=== PATIENT | male | born 1985 | race Caucasian/White ===

== ENCOUNTER 2020-06-21 07:14 | Emergency (ER) | payer OTHER ==
[~2020-06-21 07:14] MED LIST: ZOFRAN ODT 4 MG4 MG SL
[2020-06-21 08:01] LABS: HEMOGLOBIN 15.4 gm/dl (14.0-17.5); RED BLOOD COUNT 5.16 M/UL (4.20-5.50); WHITE BLOOD COUNT 7.2 K/UL (4.5-11.0)
[2020-06-21 08:24] LABS: BUN/CREATININE RATIO 11 (0-10)
[2020-06-21] MEDS ORDERED: AZITHROMYCIN250 MG PO (09:34)
[2020-06-21] MEDS ORDERED: DECADRON6 MG PO (09:34)
== END 2020-06-21 09:52 | disposition home or self-care (01) ==
LOC: ER1 07:14
PROVIDERS: Emergency Medicine
DX: U07.1 COVID-19 (principal); J12.82 Pneumonia due to coronavirus disease 2019; Z91.012 Allergy to eggs; Z88.8 Allergy status to other drugs, medicaments and biological substances
CPT/HCPCS: 70450; 71045; 80053; 81001; 83605; 85025; 85610; 85730; 87040; 87081; 87880; 93005; 99284; J7030; U0002

== ENCOUNTER 2020-06-28 06:39 | Emergency (ER) | payer OTHER ==
[~2020-06-28 06:39] MED LIST changes: +AZITHROMYCIN250 MG PO; +DECADRON6 MG PO
[2020-06-28 08:51] LABS: HEMOGLOBIN 15.8 gm/dl (14.0-17.5); RED BLOOD COUNT 5.16 M/UL (4.20-5.50); WHITE BLOOD COUNT 6.4 K/UL (4.5-11.0)
[2020-06-28 09:05] LABS: BUN/CREATININE RATIO 10 (0-10)
== END 2020-06-28 13:41 | disposition home or self-care (01) ==
LOC: ER1 06:39
PROVIDERS: Emergency Medicine
DX: U07.1 COVID-19 (principal); J12.82 Pneumonia due to coronavirus disease 2019; R79.89 Other specified abnormal findings of blood chemistry
CPT/HCPCS: 71045; 80053; 85025; 85379; 93005; 99284; Q9967